=== PATIENT | male | born 1985 | race Caucasian/White ===

== ENCOUNTER → 2020-08-09 | Outpatient (CLI) | payer BC ==
[~2020-08-09] MED LIST: PERCOCET 5/325 T1 EA PO
== END ==
LOC: HEART 5 10:16
DX: R55 Syncope and collapse (principal); I35.0 Nonrheumatic aortic (valve) stenosis
CPT/HCPCS: 93306

== ENCOUNTER → 2020-08-22 | Outpatient (CLI) | payer BC | LOC: CATH 08-02 10:00 | DX: R55 Syncope and collapse (principal); Z20.822 Contact with and (suspected) exposure to COVID-19 | CPT/HCPCS: U0002 ==